=== PATIENT | female | born 1970 | race Caucasian/White ===

== ENCOUNTER → 2018-10-31 15:31 | Outpatient (CLI) | payer BC, SELFPAY ==
--- NOTE | 2018-10-31 15:37 | XR_ITS ---
XR thoracic spine 3V Ordering Physician: Nayla Bowman APRN Patient Age: 47 years: Female HISTORY: ITS.REASON: ACUTE RIGHT SIDED THORACIC BACK PAIN Acute right sided thoracic back pain. No injury. TECHNIQUE: AP lateral and swimmer's view lateral T-spine. COMPARISON : No previous. FINDINGS The thoracic vertebral bodies appear intact no compression fracture. Disc spaces are fairly well maintained. Minor anterior marginal osteophytes mid T-spine. With this study includes the lower C-spine where there is disc space narrowing C6/7 noted The pedicles are intact. No paraspinal mass. Minor dextrocurvature of the mid to upper T-spine noted. Nonspecific but could reflect mild splinting.. The posterior ribs adjacent to the spine intact. No paraspinal mass nor medial lung mass. It Visualized portions of lungs clear. IMPRESSION: T-spine intact with no fracture or acute findings. Minor degenerative change T-spine Minimal dextrocurvature mid to upper T-spine
== END ==
PROVIDERS: PCP Nurse Practitioner; Visit Provider Nurse Practitioner
DX: M54.6 Pain in thoracic spine (principal)
CPT/HCPCS: 72072

== ENCOUNTER → 2018-12-26 16:34 | Outpatient (CLI) | payer BC, SELFPAY ==
--- NOTE | 2018-12-26 | XR_ITS ---
PROCEDURE: XR RIBS LT MIN 3V W CXR1V CLINICAL INDICATION: Left mid to lower rib pain, pleurisy COMPARISON: XR CHEST 2V from 12/26/2018 FINDINGS: No acute fracture, lytic or blastic change. There is an old fracture of the right 2nd and 3rd rib. IMPRESSION: No acute findings. Dictated by: Honorio Ricci MD 12/26/2018 19:38 Signed by: <Electronically signed by Honorio Ricci MD in [facility]> 12/26/2018 19:38
--- NOTE | 2018-12-26 16:56 | XR_ITS ---
PROCEDURE: XR CHEST 2V CLINICAL HISTORY: PLEURITIC CHEST PAIN Rib pain, cough, smoker COMPARISON: No exams were available for comparison FINDINGS: The cardiomediastinal silhouette and pulmonary vascularity are within normal limits.The lungs are clear without infiltrates, suspicious nodules, or pleural effusions. No acute bony abnormalities. IMPRESSION: No acute findings. Dictated by: Honorio Ricci MD 12/26/2018 19:36 Signed by: <Electronically signed by Honorio Ricci MD in [facility]> 12/26/2018 19:36
== END ==
PROVIDERS: PCP Nurse Practitioner; Visit Provider Nurse Practitioner
DX: R07.81 Pleurodynia (principal)
CPT/HCPCS: 71046; 71101

== ENCOUNTER 2022-07-27 16:46 | Emergency (ER) | payer BC, SELFPAY ==
[2022-07-27 16:55] VITALS: BP 128/67; PULSE 62; RESP 13; TEMP 37; O2SAT 95; BMI 33.8
--- NOTE | 2022-07-27 17:04 | CT_ITS ---
PROCEDURE INFORMATION: Exam: CT Abdomen And Pelvis With Contrast Exam date and time: 07/27/2022 5:28 PM Age: 51 years old Clinical indication: Abdominal pain; Localized; Right; Additional info: R abdo pain, rectal bleediing, v/d TECHNIQUE: Imaging protocol: Computed tomography of the abdomen and pelvis with contrast. Radiation optimization: All CT scans at this facility use at least one of these dose optimization techniques: automated exposure control; mA and/or kV adjustment per patient size (includes targeted exams where dose is matched to clinical indication); or iterative reconstruction. Contrast material: ISOVUE; Contrast volume: 75 ml; Contrast route: IV; REPORTING DATA: Count of CT and Cardiac NM exams in prior 12 months: This patient has received 0 known CTs and 0 known cardiac nuclear medicine studies in the 12 months prior to the current study. COMPARISON: CR XR CHEST 2V 12/26/2018 4:59 PM FINDINGS: Lungs: No acute findings in the visualized lower lungs. No consolidation. Heart: The heart is not enlarged. Liver: The liver is normal. Gallbladder and bile ducts: Cholecystectomy clips. Biliary tree is within normal limits. No calcified stones. Pancreas: The pancreas is normal. Spleen: The spleen is normal. Adrenal glands: The adrenal glands are normal. Kidneys and ureters: The kidneys are normal. The ureters are normal. Stomach and bowel: The stomach is normal. Scattered small intestinal air-fluid levels, no dilated loops or mucosal thickening. A thickened, edematous appearance of the descending colon, to a lesser degree in the transverse colon and upper sigmoid colon . There are multiple diverticula, greatest in the left lower quadrant sigmoid. There is no paracolic fluid. No extraluminal gas bubbles. Appendix: No findings of appendicitis. Intraperitoneal space: See Stomach and bowel finding. Vasculature: There is no aortic aneurysm. Minimal calcified atherosclerotic plaques in the abdomen and pelvis. Lymph nodes: No significantly enlarged lymph nodes by short axis criteria. Urinary bladder: The bladder is normal. Reproductive: Post hysterectomy. No acute findings as visualized. Bones/joints: Minimal spinal degenerative changes. No acute fracture. Soft tissues: There are no soft tissue masses or fluid collections. There are no soft tissue masses or fluid collections. IMPRESSION: 1. Colonic wall thickening and edema involving transverse colon through upper sigmoid, with multiple diverticula. Due to the extent of disease colitis appears most likely, less likely differential would be acute diverticulitis. 2. No paracolic fluid or extraluminal gas bubbles. 3. No findings of appendicitis. 4. Additional nonemergency and chronic findings as above.
--- NOTE | 2022-07-27 17:05 | [facility].EDGENADL ---
Discharge Plan Disposition Patient Disposition: Home, Self-Care Condition: Good Prescriptions Prescriptions: New ciprofloxacin HCl [Cipro] 500 mg tablet 500 mg PO BID Qty: 20 0RF metronidazole 500 mg tablet 500 mg PO TID Qty: 30 0RF ondansetron 4 mg tablet,disintegrating 4 mg PO Q8H PRN (Reason: nausea and vomiting) Qty: 10 0RF No Action tizanidine 4 mg tablet PO Qty: 60 adalimumab 40 mg/0.4 mL pen injector kit SQ Qty: 6 folic acid 1 mg tablet PO Qty: 90 tramadol 50 mg tablet PO Qty: 60 cholecalciferol (vitamin D3) 5,000 unit capsule PO Qty: 90 cyanocobalamin (vitamin B-12) 1,000 mcg tablet PO Qty: 90 fluticasone propionate 50 mcg/actuation spray,suspension INTRANASAL Qty: 32 citalopram 40 mg tablet PO Qty: 90 methotrexate sodium 2.5 mg tablet PO Qty: 78 levocetirizine 5 mg tablet PO Qty: 90 conjugated estrogens 0.9 mg tablet 0.9 mg PO DAILY Qty: 90 2RF Referrals Follow up/Referrals: Atul Coto PA [Primary Care Provider] - See instructions Activity Restrictions/Add. Instructions Additional Instructions/Restrictions: Cipro and Flagyl (antibiotics) as prescribed. Zofran as needed for nausea. Rest and drink plenty of fluids. Follow-up with primary care provider next week. Additional instructions for ABDOMINAL PAIN: See your physician as soon as possible for further evaluation. Return immediately if worsening abdominal pain, vomiting, shortness of breath, fever, vomiting of blood, severe rectal bleeding, or abdominal distention. Clinical Impressions Clinical Impression: Colitis Instructions Patient Instructions: DI for Acute Abdominal Pain, DI for Colitis, DI for Vomiting -- Adult Discharge ED Provider: Jaziel Mcrae General Adult HPI General Chief complaint: Abdominal Pain Stated complaint: unable to eat/drink, vomiting, blood in stool Time Seen by Provider: 07/27/22 16:57 Mode of Arrival: Ambulatory Source of Information: Patient Limitations: No Limitations Description of Symptoms (Recalled from ER Triage Doc. by RN): Pt c/o N/V/BRBPR since last pm; reports no similiar pmhx History of Present Illness HPI narrative: Since 8 PM last night she has had abdominal pain on the right side of her abdomen into her right flank, vomiting, and diarrhea. Diarrhea resolved and since then she has only been passing blood, which is happened approximately 6 times. No vomiting of blood. Unable to hold anything down all day today. No fever. No recent travel, antibiotics, or exposures. Prior hysterectomy and cholecystectomy. She is not on any anticoagulants. Related Data Home Medications Medication Instructions Recorded Confirmed adalimumab 40 mg/0.4 mL SQ #6 ea 02/23/19 02/23/19 subcutaneous pen kit cholecalciferol (vitamin D3) 125 PO #90 caps 02/23/19 02/23/19 mcg (5,000 unit) capsule citalopram 40 mg tablet PO #90 tabs 02/23/19 02/23/19 cyanocobalamin (vitamin B-12) PO #90 tabs 02/23/19 02/23/19 1,000 mcg tablet fluticasone propionate 50 intranasal #32 grams 02/23/19 02/23/19 mcg/actuation nasal spray,suspension folic acid 1 mg tablet PO #90 tabs 02/23/19 02/23/19 levocetirizine 5 mg tablet PO #90 tabs 02/23/19 02/23/19 methotrexate sodium 2.5 mg tablet PO #78 tabs 02/23/19 02/23/19 tizanidine 4 mg tablet PO #60 tabs 02/23/19 02/23/19 tramadol 50 mg tablet PO #60 tabs 02/23/19 02/23/19 Previous Rx's Medication Instructions Recorded conjugated estrogens 0.9 mg tablet 0.9 mg PO DAILY #90 tabs 06/01/20 ciprofloxacin HCl 500 mg tablet 500 mg PO BID #20 tabs 07/27/22 (Cipro) metronidazole 500 mg tablet 500 mg PO TID #30 tabs 07/27/22 ondansetron 4 mg disintegrating 4 mg PO Q8H PRN nausea and 07/27/22 tablet vomiting #10 tabs Allergies Allergy/AdvReac Type Severity Reaction Status Date / Time morphine AdvReac Vomiting Verified 02/23/19 13:47 P
[2022-07-27 17:09] LABS: Chloride 107 mmol/L (98-107); Potassium 3.9 mmoL/L (3.5-5.1); Sodium 137 mmol/L (136-145)
[2022-07-27 17:11] LABS: Basophils # 0.1 K/mm3 (0-0.2); Basophils % 0.6 % (0.1-2.0); Eosinophils # 0.1 K/mm3 (0.0-0.4); Eosinophils % 0.9 % (0.1-12.0); Hematocrit 44.5 % (37.0-47.0); Hemoglobin 15.1 g/dL (12.2-16.2); Lymphocytes # 1.7 K/mm3 (0.7-4.5); Lymphocytes % 21.5 % (10-50); Mean Corpuscular HGB Conc 33.9 g/dL (31.8-35.4); Mean Corpuscular Hemoglobin 31.2 pg (27.0-31.2); Mean Corpuscular Volume 92.1 fl (81-99); Mean Platelet Volume 10.3 fl (7.4-10.4); Monocytes # 0.4 K/mm3 (0.1-1.0); Monocytes % 4.3 % (1.7-9.3); Neutrophils # 5.8 K/mm3 (1.8-7.8); Neutrophils % 72.6 % (37.0-80.0); Platelet Count 150 K/mm3 (142-424); Red Blood Count 4.83 M/mm3 (4.20-5.40); Red Cell Distribution Width 12.6 % (11.5-17.5)
[2022-07-27 17:12] LABS: Albumin Level 4.2 g/dl (3.5-5.0); Albumin/Globulin Ratio 1.6 (1.1-1.8); Alkaline Phosphatase 62 U/L (38-126); Anion Gap 6.9 mEq/L (5-15); Bilirubin,Total 0.6 mg/dl (0.2-1.3); Blood Urea Nitrogen 7 mg/dl (7-17); Carbon Dioxide 27 mmol/L (22.0-30.0); Creatinine Clearance Estimated 133 mL/min (50-200); Estimated Glomerular Filt Rate 89 ml/min (>60); GFR (African American) 108 ML/MIN (>60); Globulin 2.7 g/dL (1.3-3.2); Total Protein,Serum 6.9 g/dl (6.3-8.2)
[2022-07-27 17:13] LABS: Alanine Aminotransferase 15 U/L (12-78); Aspartate Amino Transferase 30 U/L (14-36); Calcium 8.6 mg/dl (8.4-10.2); Glucose 88 mg/dl (74-100)
[2022-07-27 17:30] VITALS: BP 100/61; PULSE 64; O2SAT 94
[2022-07-27 18:01] VITALS: BP 135/85; PULSE 65; O2SAT 95
--- NOTE | 2022-07-27 18:29 | PC.NURSE ---
rounded on pt no complaints at this time, family @ [facility]
[2022-07-27 18:51] VITALS: BP 154/91; PULSE 63; RESP 12; TEMP 36.7; O2SAT 98
== END 2022-07-27 18:53 | disposition home or self-care (01) ==
PROVIDERS: Emergency Provider Emergency Medicine; PCP Student in an Organized Health Care Education/Training Program
DX: K52.9 Noninfective gastroenteritis and colitis, unspecified (principal); K92.1 Melena; R10.11 Right upper quadrant pain; R10.31 Right lower quadrant pain
CPT/HCPCS: 74177; 80053; 85025; 96361; 96374; 96375; 99284; 99285; J2405; Q9967

== ENCOUNTER 2024-01-14 20:42 | Emergency (ER) | payer BC, SELFPAY ==
[2024-01-14 20:43] VITALS: BP 145/80; PULSE 82; RESP 20; TEMP 37; O2SAT 97; BMI 30.9
--- NOTE | 2024-01-14 20:49 | ED_ITS ---
<Statement entered by Kevin Suazo MD - 01/14/24 22:44> I was consulted by the PASCUAL, and we discussed the complexity of problems being addressed. I approved the treatment and management plan for this patient's care in the emergency department, thus performing a substantial portion of the medical decision making. Kevin Suazo MD Discharge Plan Disposition Patient Disposition: Home, Self-Care Condition: Good Prescriptions Prescriptions: New valacyclovir [Valtrex] 1 gram tablet 1,000 mg PO Q8H 7 Days Qty: 21 0RF gabapentin 300 mg capsule 300 mg PO BID 7 Days Qty: 14 0RF ondansetron 4 mg tablet,disintegrating 4 mg PO Q6H PRN (Reason: nausea and vomiting) Qty: 10 0RF No Action tizanidine 4 mg tablet PO Qty: 60 adalimumab 40 mg/0.4 mL pen injector kit SQ Qty: 6 folic acid 1 mg tablet PO Qty: 90 tramadol 50 mg tablet PO Qty: 60 cholecalciferol (vitamin D3) 5,000 unit capsule PO Qty: 90 cyanocobalamin (vitamin B-12) 1,000 mcg tablet PO Qty: 90 fluticasone propionate 50 mcg/actuation spray,suspension INTRANASAL Qty: 32 citalopram 40 mg tablet PO Qty: 90 methotrexate sodium 2.5 mg tablet PO Qty: 78 levocetirizine 5 mg tablet PO Qty: 90 conjugated estrogens 0.9 mg tablet 0.9 mg PO DAILY Qty: 90 2RF ciprofloxacin HCl [Cipro] 500 mg tablet 500 mg PO BID Qty: 20 0RF metronidazole 500 mg tablet 500 mg PO TID Qty: 30 0RF ondansetron 4 mg tablet,disintegrating 4 mg PO Q8H PRN (Reason: nausea and vomiting) Qty: 10 0RF Referrals Follow up/Referrals: Atul Coto PA [Primary Care Provider] - See instructions Activity Restrictions/Add. Instructions Additional Instructions/Restrictions: Please follow-up with your PCP within 48 hours for recheck. Return to the emergency department for any worsening signs or symptoms including fever and headache. Clinical Impressions Clinical Impression: Shingles Qualifiers: Herpes zoster complications: unspecified herpes zoster complication Qualified Code(s): B02.8 - Zoster with other complications Instructions Patient Instructions: DI for Shingles Print Language Print Language: Greek Discharge ED Provider: Kevin Suazo General Adult HPI General Chief complaint: Skin/Abscess/Foreign Body Stated complaint: poss insect bite Time Seen by Provider: 01/14/24 20:49 History of Present Illness HPI narrative: Patient presents for evaluation initially of a bug bite . Patient states that she feels like that she had a bug bite on the back of her neck that she noticed on . However it seems to have spread and has become very painful. There is no itching fever chills hemoptysis hematochezia melena nausea vomiting diarrhea headache change in level of consciousness. Related Data Home Medications ?Medication ?Instructions ?Recorded ?Confirmed adalimumab 40 mg/0.4 mL SQ #6 ea 02/23/19 02/23/19 subcutaneous pen kit cholecalciferol (vitamin D3) 125 PO #90 caps 02/23/19 02/23/19 mcg (5,000 unit) capsule citalopram 40 mg tablet PO #90 tabs 02/23/19 02/23/19 cyanocobalamin (vitamin B-12) PO #90 tabs 02/23/19 02/23/19 1,000 mcg tablet fluticasone propionate 50 intranasal #32 grams 02/23/19 02/23/19 mcg/actuation nasal spray,suspension folic acid 1 mg tablet PO #90 tabs 02/23/19 02/23/19 levocetirizine 5 mg tablet PO #90 tabs 02/23/19 02/23/19 methotrexate sodium 2.5 mg tablet PO #78 tabs 02/23/19 02/23/19 tizanidine 4 mg tablet PO #60 tabs 02/23/19 02/23/19 tramadol 50 mg tablet PO #60 tabs 02/23/19 02/23/19 Previous Rx's ?Medication ?Instructions ?Recorded conjugated estrogens 0.9 mg tablet 0.9 mg PO DAILY #90 tabs 06/01/20 ciprofloxacin HCl 500 mg tablet 500 mg PO BID #20 tabs 07/27/22 (Cipro) metronidazole 500 mg tablet 500 mg PO TID #30 tabs 07/27/22 ondansetron 4 mg disintegrating 4 mg PO Q8H PRN nausea and 07/27/22 tablet vomiting #10 tabs gabapentin 300 mg capsule 300 mg PO BID 7 days #14 caps 01/14/24 gabapentin 300 mg capsule 300 mg PO TID #30 caps 01/14/24 ondansetron 4 mg disintegrating 4 mg PO Q6H PRN nausea and 01/14/24 tablet vomiting #10 tabs valacyclovir 1 gram tablet 1,000 mg PO Q8H 7 days #21 tabs 01/14/24 (Valtrex) Allergies Allergy/AdvReac Type Severity Reaction Status Date / Time morphine AdvReac Vomiting Verified 02/23/19 13:47 PFSH PFS Disclaimer: The information contained in this section may have been updated after the patient was seen, as this information can be updated by other users. Social History Smoking Status: Never smoker alcohol intake: never current occupational status: employed Travel in the last 8 weeks: None ROS Obtained: Yes Systems reviewed as appropriate & no additional complaints except as documented Physical Exam General General appearance: alert and in no apparent distress Neck Neck exam: Present lymphadenopathy Respiratory Respiratory exam: Present accessory muscle use Cardiovascular Cardiovascular exam: Present regular rate Neurological Exam Neurological exam: Present alert and oriented X3 Medical Decision Making Rinku Inquiry Pt receiving controlled substance: No Vital Signs: 01/14/24 20:43 01/14/24 21:23 Temperature 98.6 F 98.1 F Temperature Source Oral Oral Pulse Rate 85 Pulse Rate [Right Radial] 82 Respiratory Rate 20 17 Blood Pressure 129/88 Blood Pressure [Right Arm] 145/80 H Blood Pressure Mean [Right Arm] 101 Blood Pressure Source Automatic Cuff 02 Sat by Pulse Oximetry 97 Oxygen Delivery Method Room Air Room Air Orders (Tests/Meds): ED MEDICATIONS Discontinued Medications Generic Name Dose Route Start Last Admin Trade Name Freq PRN Reason Stop Dose Admin Acyclovir 800 mg 01/14/24 21:01/14/24 21:22 Acyclovir 400mg Tab PO 01/14/24 21:10 800 mg ONCE ONE Administration Gabapentin 300 mg 01/14/24 21:09 01/14/24 21:22 Gabapentin 300mg Capsule PO 01/14/24 21:10 300 mg ONCE ONE Administration Medical Decision Narrative: In summary patient is a 53-year-old female who presents to the emergency department for evaluation of skin eruption. Patient is hemodynamically stable upon arrival, afebrile. Physical exam is remarkable for a vesicular erythematous base rash over the C4 dermatome on the left.. Differential diagnosis includes shingles versus contact dermatitis etc. Initial workup was considered however she has no red flags that this is anything other than herpes zoster as she has the classic burning pain arthralgias with vesicular erythematous distribution over the C4 dermatome only and it does not cross the midline.. Initial interventions include gabapentin acyclovir. Given this patient is appropriate for discharge with strict return precautions especially fever greater than 100, prescription for Valtrex 1 g every 8 hours and gabapentin 300 mg every 8 hours as needed for neuropathic pain and a 48-hour follow-up with her PCP. Critical Care Critical Care Time Critical Care Time: No
[2024-01-14] MEDS: ACYCLOVIR 400MG TAB 800 MG PO (21:22)
[2024-01-14] MEDS: GABAPENTIN 300MG CAPSULE 300 MG PO (21:22)
[2024-01-14 21:23] VITALS: BP 129/88; PULSE 85; RESP 17; TEMP 36.7; O2SAT 98
[2024-01-14 21:25] VITALS: BP 129/88; PULSE 66; O2SAT 98
--- NOTE | 2024-01-15 10:58 | P.EN_ITS ---
I was contacted by pharmacy, this patient's gabapentin is unable to be filled due to transmission error. I discussed the case with the prescribing physician and performed brief chart review. Dr. Suazo is currently having problems with electronic transmission that he is troubleshooting, he wrote a paper prescription however this is unable to be honored given that it is controlled. Patient has shingles clinically and is being treated with valacyclovir and gabapentin for their for pain. I agree that this is a good plan and given that the prescriber is unable to send it electronically currently as a medical reimbursement specialist will fill this patient's prescription for a 10-day course which has been sent by me to their pharmacy on record.
== END 2024-01-14 21:36 | disposition home or self-care (01) ==
PROVIDERS: Emergency Provider Emergency Medicine; PCP Student in an Organized Health Care Education/Training Program
DX: B02.8 Zoster with other complications (principal)
CPT/HCPCS: 99283

== ENCOUNTER 2025-01-27 20:48 | Emergency (ER) | payer OTHER, SELFPAY ==
--- OUTSIDE RECORDS SUMMARY | 2023-10-10 10:00 | XMS_ITS | Continuity of Care Document ---
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 Name Role Phone Senait MALDONADO, Stevo Unavailable Unavailable Allergies, Adverse Reactions, Alerts Substance Reaction Status Criticality morphine Swelling Active No Information morphine Active No Information Medications Medication Instructions Dosage Effective Dates (start - stop) Status Comments Percocet 5 mg-325 mg tablet take 1 - 2 Tablet by ORAL route every 4 - 6 hours as needed 1-2 Tablet - Active MUST LAST 5 DAYS, ORTHOPAEDIC SURGERY ON 09/25/2023 ondansetron HCl 4 mg tablet take 1 - 2 Tablet by oral route every 6 hours as needed for nausea 4 MG - Active Percocet 5 mg-325 mg tablet take 1 - 2 Tablet by ORAL route every 4 - 6 hours as needed 1-2 Tablet - Active MUST LAST 5 DAYS, ORTHOPAEDIC SURGERY ON 07/31/2023 ondansetron HCl 4 mg tablet take 1 - 2 Tablet by oral route every 6 hours as needed for nausea 4 MG - Active Celebrex 100 mg capsule take 1 capsule by oral route every day 100 MG - Active tizanidine 4 mg tablet take 1 tablet by oral route every night at bedtime - Active Medrol (Sharad) 4 mg tablets in a dose pack take by Oral route Not Available - Active Percocet 5 mg-325 mg tablet take 1 - 2 Tablet by ORAL route every 4 - 6 hours as needed 1-2 Tablet - Active MUST LAST 7 DAYS, ORTHOPAEDIC SURGERY ON 05/08/2019 promethazine 25 mg tablet take 1 tablet by oral route every 4 - 6 hours as needed 25 MG - Active Procedures Procedure Date Postop followup visit Carpal tunnel surgery Postop followup visit Carpal tunnel surgery Office/outpatient visit,est, mod 2023 Office/outpatient visit,est, mod 2023 Office/outpatient visit,est, high MRI Lumbar Spine wo Contrast Office/outpatient visit,new, mod 2022 Inject, therapeutic, carpal tunnel Dexamethasone sodium phos Office/outpatient visit,est, low 2019 Dexamethasone sodium phos Inject tndn sheath/lgmnt/gangl cyst Office/outpatient visit,est, mod 2019 Dexamethasone sodium phos Inject, therapeutic, carpal tunnel MRI Upr Ext Joint wo Contrast Office/outpatient visit,est, mod 2019 Dexamethasone sodium phos Drain/inject intermed joint/bursa Office/outpatient visit,est, mod 2019 X-ray exam of finger(s),2+ views 2019 Office/outpatient visit,est, mod 2019 X-ray exam of finger(s),2+ views 2019 Postop followup visit X-ray exam of finger(s),2+ views 2019 Postop followup visit X-ray exam of finger(s),2+ views 2019 Repair/revise wrist joint(s) Transplant hand tendon, each PA- Repair/Revise Wrist Joint 9 PA Transplant hand tendon, each 019 Postop followup visit Carpal tunnel surgery Postop followup visit REPAIR ELBOW RODRIGO/ATTCH OPEN EO withjoint, Prefabricated Office/outpatient visit,est, mod 2018 MRI Upr Ext Joint wo Contrast 9 Office/outpatient visit,est, mod 2018 Office/outpatient visit,est, mod 2018 X-ray exam of elbow, complete 9 X-ray exam of finger(s),2+ views 2018 Drain/inject small jointor bursa 2018 Injection, tendon origin/insertion Dexamethasone sodium phos Office/outpatient visit,est, mod 2018 Office/outpatient visit,est, mod 2018 Inject, therapeutic, carpal tunnel Dexamethasone sodium phos Office/outpatient visit,est, mod 2018 Wrist cock-up non-molded Postop followup visit Postop followup visit Carpal tunnel surgery Office/outpatient visit,est, mod 2017 Office/outpatient visit,est, mod 2017 Wrist cock-up non-molded Office/outpatient visit,est, mod 2017 Inject, therapeutic, carpal tunnel Dexamethasone sodium phos Office/outpatient visit,est, mod 2017 NRV CNDJ TEST 9-10 STUDIES MUSC TEST DONE W/N TEST COMP Office/outpatient visit,est, mod 2017 Office/outpatient visit,est, mod 2017 Office/outpatient visit,est, mod 2016 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 3+ msclgrp Methylprednisolone 80 MG inj MRI Thoracic Spine wo Contrast 17 Office/outpatient visit,est, mod 2016 Office/outpatient visit,est, mod 2016 MRI Cervical Spine wo Contrast 17 Office consultation, moderate 7 X-ray exam of neck spine2-3 views Advance Directives Directive Yes / No Effective Date File Name No Information Encounters Encounter Description Practice Location Reason(s) For Visit Diagnoses Date Provider Providers Copied on Encounter [facility], [facility], tel:[phone] [facility] Carpal tunnel syndrome, bilateral upper limbs 0-202 4 Senait Stevo. [address] [place] [address], [address] [place] [address], . tel:[phone] Referring Provider: Stevo Sapp, [address] [address], [place], [address] . tel:[phone], [facility], tel:[phone] [facility], [place] No Information 5- 4 Senait Whiteside. [address] [place] [address], [address] [place] [address], . tel:[phone] Referring Provider: Stevo Sapp, [address] [place] [address], [place], [address] . tel:[phone] [facility] [address], [facility], tel:[phone] 26[address] [facility] No Information 3- 4 eSnait Stevo. [address] [place] [address], [id number], . tel:[phone] Referring Provider: Stevo Sapp, [address], [address] . tel:[phone] [facility] [address], [facility], tel:[phone] [facility] Carpal tunnel syndrome, bilateral upper limbs Apr-0 4-202 4 Senait Whiteside. [address], [id number], . tel:[phone] Referring Provider: Stevo Sapp, [address] [facility], [place], [address] . tel:[phone] [facility] [address] [place] [address], [address], tel:[phone] [facility] [place] No Information 0 4 Senait Whiteside. [address] [address], [place], [place], [id number], [place]. tel:[phone] Referring Provider: Stevo Sapp, [address] [facility], [place], [address] . tel:[phone] [facility], [address] [place] [address], [facility], tel:[phone] 46[address] [facility] No Information 4 Senait Whiteside. [address] [address], [place], [id number], [place]. tel:[phone] Referring Provider: Stevo Sapp, [address] [address], [place], [address] . tel:[phone] Office/outpa tient visit,est, mod [facility], [address] [place] [address], [address], [place] tel:[phone] [facility] Carpal tunnel syndrome, bilateral upper limbs 4 Senait Whiteside. [address], [id number], [place]. tel:[phone] Referring Provider: Stevo Sapp, [address] [address], [place], [address] . tel:[phone] Office/outpa tient visit,est, [facility], [address] [place] [address], [address], tel:[phone] [facility] back pain (chief complaint) Other low back pain 4 Adelaida Mayorga. [address] [place] [address] [place], [id number], [place]. tel:[phone] Referring Provider: Andres Castellano, [address], [place], [address] . tel:[phone] Office/outpa tient visit,est, high [facility], [address] [place], [address], [place] tel:[phone] [facility] back pain (chief complaint) Low back painRadiculopa thy, lumbar region 4 Tabbosha Monir. [address] [facility], [place], [place], [id number], [place]. tel:[phone] Referring Provider: Nixon Yo, [address], [place], [address] . tel:[phone] [facility], [facility], [address], [place] tel:[phone] [address] [place] [address] Other intervertebral disc degeneration, lumbar region 4 Sanaz Alicea. [address], [place], [place], [id number], [place]. tel:[phone] Referring Provider: Nixon Yo, [address], [place], [address] . tel:[phone] [facility], [facility], [address], [place] tel:[phone] [address] [place] [address] No Information 4 Sanaz Alicea. [address], [place], [place], [id number], [place]. tel:[phone] Referring Provider: Nixon Yo, [address], [place], [address] . tel:[phone] [facility], [facility], [address], [place] tel:[phone] [address] [place] [address] Low back pain, unspecified 4 Sanaz Alicea. [address], [place], [place], [id number], [place]. tel:[phone] Referring Provider: Stevo Sapp, [address] [facility], [place], [address] . tel:[phone] Office/outpa tient visit,new, mod [facility], [address] [place], [address], [place] tel:[phone] [facility] Carpal tunnel syndrome, bilateral upper limbs 3 Senait Stevo. [address] [facility], [address], [place], [place], [id number], [place]. tel:[phone] Referring Provider: Nixon Nails, [address] [facility] [address], [place], [place], [facility]. tel:[phone] Office/outpa tient visit,est, [facility], [facility] [place], [facility], [place] tel:[phone] [facility] Radial styloid tenosynovitis [de Quervain] 0 Senait Stevo. [address] [facility], [facility] [address], [place], [id number], [place]. tel:[phone] Office/outpa tient visit,est, [facility], [address] [place] [address], [address], [place] tel:[phone] [facility] Pain in left wristSprain of metacarpophala ngeal joint of left thumb, init 0 Senait Stevo. [address] [facility], [address], [place], [id number], [place]. tel:[phone] [facility] [address], [address], [place] tel:[phone] [facility] No Information 0 Senait Stevo. [address] [facility], [facility] 100, [place], [place], [id number], [place]. tel:[phone] Referring Provider: Stevo Sapp, [address] [facility] [address], [place], [address] . tel:[phone] Office/outpa tient visit,est, mod [facility], [address] [place], [address], [place] tel:[phone] [facility] Sprain of metacarpophala ngeal joint of left thumb, init 9 0 Senait Stevo. [address] [facility], [address], [place], [place], [id number], [place]. tel:[phone] Referring Provider: Nixon Yo, [address], [place], [address] . tel:[phone] Office/outpa tient visit,est, mod [facility], [facility], [address], [place] tel:[phone] [facility] hand (chief complaint) Unil primary osteoarth of first carpometacarp joint, l hand 0 Senait Stevo. [address] [facility], [facility] 100, [place], [place], [id number], [place]. tel:[phone] Referring Provider: Nixon Yo, [address], [place], [address] . tel:[phone] Office/outpa tient visit,est, mod [facility], [address] [place] [address], [facility], [place] tel:[phone] [facility] No Information 0 Senait Stevo. [address] [facility], [address], [place], [place], [id number], [place]. tel:[phone] Referring Provider: Nixon Yo, [address], [place], [address] . tel:[phone] [facility], [facility], [address], [place] tel:[phone] [facility] No Information 0 Senait Stevo. [address] [facility], [facility], [place], [place], [id number], [place]. tel:[phone] Referring Provider: Nixon Yo, [place], [address] . tel:[phone] [facility], [address] [place], [place], [facility], [place] tel:[phone] [facility] No Information 0 Senait Stevo. [address] [facility], [facility] 100, [place], [place], [id number], [place]. tel:[phone] [facility], [address] [place], [place], [facility], [place] tel:[phone] [facility] No Information 0 Senait Stevo. [address] [address], [place], [place], [id number], [place]. tel:[phone] [facility], [facility] [place], [facility], [place] tel:[phone] [facility] No Information 9 Senait Stevo. [address], [id number], [place]. tel:[phone] [facility], [facility] [place], [facility], [place] tel:[phone] [facility] No Information 9 Blayne Mcginnis. [address] [place], [place], [id number], [place]. 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 [address] [facility], [address], [id number], [place]. tel:[phone] Referring Provider: Nixon Yo, [address], [place], [address] . tel:[phone] [facility], [address] [place], [place], [facility], [place] tel:[phone] [facility] No Information 9 Senait Stevo. [address] [facility], [address], [place], [place], [id number], [place]. tel:[phone] Referring Provider: Nixon Yo, [address] [place], [address] . tel:[phone] [facility], [address] [place], [place], [facility], [place] tel:[phone] [facility] No Information 9 Senait Stevo. [address] [facility], Suite [facility], [place], [place], [id number], [place]. tel:[phone] [facility], [address] [place], [place], [facility], [place] tel:[phone] [place] [address] Carpal tunnel syndrome, right upper limb 9 Senait Stevo. 64[address] [facility], [address] [address], [place], [place], [id number], [place]. tel:[phone] [facility], [address] [place], [place], [facility], [place] tel:[phone] [place] [address] No Information 9 Senait Stevo. [address] [facility], [address], [place], [id number], [place]. tel:[phone] [facility], [address] [place], [place], [facility], [place] tel:[phone] [facility] No Information 9 Senait Stevo. [address] [facility], [address], [place], [place], [id number], [place]. tel:[phone] [facility], [address] [place], [place], [facility], tel:[phone] [facility] No Information 8201 9 Senait Whiteside. [address], [address] [place] [address], . tel:[phone] Referring Provider: Nixon Yo, [address], [place], [address] . tel:[phone] Office/outpa tient visit,est, mod [facility], [address] [place] [address], [facility], tel:[phone] [facility] No Information 4201 9 Senait Stevo. [address], [address] [place] [address], . tel:[phone] Referring Provider: Stevo Sapp, [address], [address] . tel:[phone] [facility], [address] [place] [address], [facility], tel:[phone] [facility] No Information 7201 9 Senait Stevo. [address], [address] [place] [address], . tel:[phone] Referring Provider: Stevo Sapp, [address], [address] . tel:[phone] Office/outpa tient visit,est, mod [facility], [address] [place] [address], [facility], tel:[phone] [facility] No Information 0201 9 Senait Stevo. [address], [address] [place] [address], . tel:[phone] Referring Provider: Nixon Yo, [address] [place], [address] . tel:[phone] Office[facility]outpa tient visit,est, mod [facility] [address] [place], [address], [place] tel:[phone] [facility] elbow (chief complaint) Lateral epicondylitis of left elbow Sep-2 9 Senait Stevo. [address] [facility], [address], [id number], [place]. tel:[phone] Referring Provider: [place], [address] . tel:[phone] Office/outpa tient visit,est, mod [facility], [address] [place], [address], [place] tel:[phone] [facility] No Information 9 Senait Stevo. [address] [address], [place], [place], [id number], [place]. tel:[phone] Referring Provider: [address], [place], [address] . tel:[phone] Office/outpa tient visit,est, [facility], [address] [place] [address], [address], [place] tel:[phone] [facility] No Information 0 9 Senait Stevo. [address] [facility], [address] [address], [place], [place], [id number], [place]. tel:[phone] Referring Provider: [address], [place], [address] . tel:[phone] [facility], [address] [place] [address], [address], [place] tel:[phone] [facility] No Information 3 9 Senait Stevo. [address] [facility], [address], [id number], [place]. tel:[phone] Referring Provider: [place], [address] . tel:[phone] Office/outpa tient visit,est, mod [facility], [address] [place] [address], [facility], tel:[phone] [facility] right carpal tunnel syndrome (chief complaint) No Information 9 Senait Stevo. 64[address] [facility], [address], [id number], . tel:[phone] Referring Provider: Nixon Yo, [address], [place], [address] . tel:[phone] [facility], [address] [place] [address], [facility], tel:[phone] [address] [place] [address] No Information 9 Senait Stevo. 6480 [facility], [address], [id number], . tel:[phone] [facility], [address] [place] [address], [facility], tel:[phone] [place] [address] No Information 8 Senait Stevo. 6480 [facility], [address], [id number], . tel:[phone] Referring Provider: Nixon Yo, [address] [place], [address] . tel:[phone] [facility], [address] [place] [address], [facility], tel:[phone] [phone] [place] [address] No Information 8 Senait Stevo. 6480 [facility], [address], [id number], . tel:[phone] [facility] [address], [facility], tel:[phone] [place] [address] No Information 8 Senait Stevo. 64[address] [facility], [address], [id number], [place]. tel:[phone] Office/outpa tient visit,est, mod [facility], [facility], [address], [place] tel:[phone] [facility] No Information 8 Sanaz Alicea. [address] [place], [place], [id number], . tel:[phone] Office/outpa tient visit,est, mod [facility], [facility], [address], [place] tel:[phone] [facility] No Information 8 Senait Whiteside. [address], [id number], [place]. tel:[phone] [facility], [address] [place] [address], [facility], [place] tel:[phone] [facility] No Information 8 Senait Whiteside. [address] [address], [place], [place], [id number], [place]. tel:[phone] Referring Provider: Stevo Sapp, [address] [place] [address], [place], [address] . tel:[phone] Office/outpa tient visit,est, mod [facility], [address] [place] [address], [facility], [place] tel:[phone] [facility] wrist (chief complaint) Carpal tunnel syndrome, left upper limb 8 Senait Whiteside. [address] [address], [place], [place], [id number], [place]. tel:[phone] Referring Provider: Nixon Yo, [address], [place], [address] . tel:[phone] Office/outpa tient visit,est, mod [facility], [facility] [place], [address], [place] tel:[phone] [place] [address] No Information Aug-0 9- 8 Sanaz Alicea. [address], [place], [place], [id number], [place]. tel:[phone] [facility], [address] [place] [address], [facility], [place] tel:[phone] [facility] (chief complaint) No Information Aug-0 4-201 8 Adelaida Mayorga. [address] [facility], [address], [place], [place], [id number], [place]. tel:[phone] Referring Provider: Nixon Yo, [address], [place], [address] . tel:[phone] Office/outpa tient visit,est, mod [facility], [address] [place] [address], [facility], [place] tel:[phone] [facility] No Information 8 Sanaz Alicea. [address], [place], [place], [id number], [place]. tel:[phone] Office/outpa tient visit,est, mod [facility], [address] [place] [address], [facility], [place] tel:[phone] [place] [address] No Information 8 Sanaz Alicea. [address], [place], [place], [id number], [place]. tel:[phone] Office/outpa tient visit,est, mod [facility], [address] [place] [address], [facility], [place] tel:[phone] [place] [address] No Information Apr-2 7 Sanaz Alicea. [address], [place], [place], [id number], [place]. tel:[phone] [facility], [address] [place] [address], [facility], [place] tel:[phone] [facility] No Information Apr-2 7 Sanaz Alicea. [address], [place], [place], [id number], . tel:[phone] Referring Provider: Nixon Yo, [address], [place], [address] . tel:[phone] Office/outpa tient visit,est, mod [facility], [address] [place], [address], [place] tel:[phone] [facility] No Information 7 Sanaz Alicea. [address], [place], [place], [id number], [place]. tel:[phone] Office/outpa tient visit,est, mod [facility], [address] [place], [address], [place] tel:[phone] [facility] No Information 7 Sanaz Alicea. [address], [place], [place], [id number], [place]. tel:[phone] Referring Provider: Zachery Reddy, [address] [place] [address], [address] . tel:[phone] [facility], [address] [place], [address], [place] tel:[phone] [facility] No Information 7 Jerica Bingham. [address] [place], [place], [id number], [place]. tel:[phone] Referring Provider: Zachery Reddy, [facility], [address] . tel:[phone] Office consultation , moderate [facility], [address] [place], [address], [place] tel:[phone] [facility] No Information 7 Jerica Bingham. [address] [place], [place], [id number], [place]. tel:[phone] Referring Provider: Tono Suazo, [address] [facility] [address], [address] . tel:[phone] Family History Family Member Type Diagnosis Age At Onset Father Problem (finding) Cancer Mother Problem (finding) Family history of Hyper lipidemia Sister Problem (finding) Depression Brother Problem (finding) Hypertension Brother Problem (finding) Family history of Hyper lipidemia Mother Problem (finding) Depression Sister Problem (finding) Hypertension Mother Problem (finding) Hypertension Brother Problem (finding) Diabetes mellitus Mother Problem (finding) Family history of Osteo porosis Sister Problem (finding) Family history of Hyper lipidemia Sister Problem (finding) Family history of Osteo arthritis Payers Payer name Insurance type Covered green party ID [place] Medicaid [facility] [id number] Social History Type Description Quantity Date Captured Comments Sex Female Smoking Status No Information Chief Complaint And Reason For Visit No Information Reason For Referral Reason For Referral No Information Plan Of Treatment Date Type Action Status Referral Ordered: Andres Castellano MD (related to Low back pain) ordered Referral Referred To: Andres Castellano MD [facility] [place], [address] [phone] Ordered: Referrals: Andres Castellano MD. Evaluate and treat ordered Future Order: Radiology Order MR I Elbow WO Contrast ([id number]), Collected on: , Sent on: Sent Future Order: Radiology Order MR I Thoracic Spine WO Contrast ([id number]), Collected on: , Sent on: Sent Future Order: Radiology Order MR I Cervical Spine WO Contrast ([id number]), Collected on: , Sent on: Sent History Of Present Illness Encounter Date Complaint History Of Prese nt Illness back pain back pain back pain back pain back pain carpal tunnel syndrome hand The symptoms are reported as being moderate. The symptoms occur daily. elbow Location: left e lbow. The pain is aching and sharp. Associated symptoms include joint instability, joint tenderness, swelling and weakness. Hand Dominance: right. right carpal tunnel syndrome Sev erity of symptom is mild. Status of symptoms has worsened. She is right-handed. The problem occurs constantly. Affected side: right. 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 There is radiation to wrist. Symptoms are aggravated by driving, forceful work, holding a phone, repetitive work / hand intensive activity and sustained hand positions. The risk factors include female. Relieving factors include OTC medication: and wrist splinting. Associated symptoms include decreased mobility and numbness. wrist Location: left w rist. The pain is aching. The pain is aggravated by bending and movement. The pain is relieved by brace/splint. Associated symptoms include nocturnal awakening, numbness, swelling and tingling in the arms. EMG Functional Status Date Functional Assessmen t No Information Instructions Date Instruction Additional Infor mation No Information Assessments Type Assessment Date No Information Patient Care Teams Name Effective Dates (start - stop) Status Members No Information
--- OUTSIDE RECORDS SUMMARY | 2025-01-13 14:17 | XMS_ITS | Encounter Summary ---
Author Organization [place] [address] Care Team Providers Care Dry Cleaner Name Role Phone Nayla Bowman APRN Primary Care Provider [phone] Scooby Hicks MD Unavailable Reason for Referral * Mammography (Routine) - Pending Review Specialty Diagnoses / Procedures Referred By Geri ordaz Referred To Contact Radiology Diagnoses Encounter for screening mammogram for malignant neoplasm of breast Procedures MM MAMMO DIGITAL ALVARADO SCREEN Atul Cummings PA [address] [place] [address] [place] [address] Phone: tel: fax: Referral ID Status Reason Start Date Expiration Date V isits Requested Visits Authorized [id number] Pending Review 12/31/2024 12/31/2026 1 1 Reason for Visit * Mammography (Routine) - Pending Review Specialty Diagnoses / Procedures Referred By Geri ordaz Referred To Contact Radiology Diagnoses Encounter for screening mammogram for malignant neoplasm of breast Procedures MM MAMMO DIGITAL ALVARADO SCREEN Atul Cummings PA [address] [place] [address] [place] [address] Phone: tel: fax: Referral ID Status Reason Start Date Expiration Date V isits Requested Visits Authorized [id number] Pending Review 12/31/2024 12/31/2026 1 1 Encounter Details Date Type Department Care Team (Latest Contact Info) Description 01/13/2025 2:17 PM EDT - 01/13/2025 11:59 PM EDT Hospital Encounter Mobile Mammography Other Location View online schedule for mobile van location [phone] Atul Coto PA [address] [place] [address] [place] [id number] Encounter for screening mammogram for malignant neoplasm of breast Discharge Disposition: Home or Self Care Social History Tobacco Use Types Packs/Day Years Used Date Smoking Tobacco: Every Day Cigarettes 1 38.7 Started: 05/26/1986 Smokeless Tobacco: Never Alcohol Use Standard Drinks/Week Comments No 0 (1 standard drink = 0.6 oz pur e alcohol) Comments No Sex and Gender Information Value Date Recorded Sex Assigned at Not on file Legal Sex Female 9:19 PM EDT Gender Identity Not on file Sexual Orientation Not on file documented as of this encounter Last Filed Vital Signs Vital Sign Reading Time Taken Comments Blood Pressure - - Pulse - - Temperature - - Respiratory Rate - - Oxygen Saturation - - Inhaled Oxygen Concentration - - Weight 81.6 kg (180 lb) 01/13/2025 2:18 PM EDT Height 160 cm (5' 3 ) 01/13/2025 2:18 PM EDT Body Mass Index 31.89 01/13/2025 2:18 PM EDT documented in this encounter Medications at Time of Discharge acetaminophen 325 mg Oral Tab Take by mouth every 6 hours as needed. adalimumab (HUMIRA) 40 mg/0.4 mL SubQ Pen Injector Kit 02/26/2018 atorvastatin (LIPITOR) 10 mg Oral Tablet TAKE ONE (1) TABLET EVERY DAY BY ORAL ROUTE. 07/03/2021 Cholecalciferol, Vitamin D3, 5,000 unit Oral Capsule 08/19/2018 citalopram (CELEXA) 40 mg Oral Tablet 11/12/2018 cyanocobalamin 1,000 mcg Oral Tablet 08/19/2018 fluticasone propionate (FLONASE) 50 mcg/actuation Nasl [place], Suspension 03/11/2018 folic acid (FOLVITE) 1 mg Oral Tablet 12/02/2017 hyoscyamine (LEVSIN/SL) 0.125 mg SL Tablet, Sublingual 1 08/06/2018 levocetirizine (XYZAL) 5 mg Oral Tablet 11/25/2018 loratadine (CLARITIN) 10 mg Oral Tablet TAKE ONE (1) TABLET EVERY DAY BY ORAL ROUTE. 04/13/2021 methocarbamoL (ROBAXIN) 750 mg Oral Tablet TAKE ONE (1) TABLET THREE (3) TIMES A DAY BY ORAL ROUTE NEEDED. Methotrexate Sodium 2.5 mg Oral Tablets, Dose Pack 12/02/2017 naproxen (NAPROSYN) 500 mg Oral Tablet 05/25/2022 omeprazole (PRILOSEC) 40 mg Oral Capsule, Delayed Release(E.C.) TAKE ONE (1) CAPSULE BY MOUTH EVERY DAY oxybutynin (DITROPAN XL) 15 mg Oral Tablet Extended Rel 24 hr TAKE ONE (1) TABLET EVERY DAY BY ORAL ROUTE. 05/25/2022 PREMARIN 0.625 mg Oral Tablet TAKE ONE (1) TABLET EVERY DAY BY ORAL ROUTE. 04/10/2022 tiZANidine (ZANAFLEX) 4 mg Oral Tablet 09/18/2017 traMADol (ULTRAM) 50 mg Oral Tablet 02/17/2018 VITAMIN B-12 1,000 mcg Oral Tablet 08/19/2018 documented as of this encounter Discharge Disposition Disposition Code Departure Means Destination Home or Self Care documented in this encounter Plan of Treatment Not on file documented as of this encounter Procedures Procedure Name Priority Date/Time Associated Diagnosis Comments MM MAMMO DIGITAL ALVARADO SCREEN BILAT Routine 01/13/2025 2:18 PM EDT Encounter for screening mammogram for malignant neoplasm of breast documented in this encounter Results * MM MAMMO DIGITAL ALVARADO SCREEN BILAT (01/13/2025 2:18 PM EDT) Anatomical Region Laterality Modality Breast Bilateral Mammography 01/13/2025 2:18 PM EDT Impressions 01/14/2025 8:59 AM EDT Negative ([id number]) RECOMMENDATION: Routine Screening Mammogram in 1 Year Bilateral . . COMMENTS: DISCLAIMER *The patient was notified by MyChart or mail of the results for this examination. *The patient's information was entered into a reminder system with a target due date for the next breast imaging, in accordance with the [employer] and the Society of Breast Imaging recommendations. *Breast Imaging has a false negative rate of 15%. *Any patient with a palpable abnormality, unexplained by breast imaging, should be managed on a clinical basis by the attending physician. Narrative 01/14/2025 8:59 AM EDT EXAM: MM MAMMO DIGITAL ALVARADO SCREEN BILAT EXAM DATE: 01/13/2025 2:18 PM INDICATION: Z12.31-Encounter for screening mammogram for malignant neoplasm of syzzio-[id number] COMPARISON STUDIES: Multiple prior mammograms with most recent dated 10/07/2020 MM MAMMO DIGITAL SCREENING W CAD BILAT at [facility] TISSUE DENSITY: There are scattered areas of fibroglandular density. FINDINGS: No mammographic evidence of malignancy. Procedure Note Keyur Brizuela MD - 01/14/2025 EXAM: MM MAMMO DIGITAL ALVARADO SCREEN BILAT EXAM DATE: 01/13/2025 2:18 PM INDICATION: Z12.31-Encounter for screening mammogram for malignantneoplasm of lihdis-[id number] COMPARISON STUDIES: Multiple prior mammograms with most recent dated 10/07/2020 MM MAMMO DIGITAL SCREENING W CAD BILAT at [facility] TISSUE DENSITY: There are scattered areas of fibroglandular density. FINDINGS: No mammographic evidence of malignancy. IMPRESSION: Negative ([id number]) RECOMMENDATION: Routine Screening Mammogram in 1 Year Bilateral . . COMMENTS: DISCLAIMER *The patient was notified by MyChart or mail of the results for this examination. *The patient's information was entered into a reminder system with atarget due date for the next breast imaging, in accordance with the [employer] and the Society of Breast Imaging recommendations. *Breast Imaging has a false negative rate of 15%. *Any patient with a palpable abnormality, unexplained by breast imaging,should be managed on a clinical basis by the attending physician. Atul [facility] MAMMOGRAPHY ORDERABLES Final Result documented in this encounter Visit Diagnoses Diagnosis Encounter for screening mammogram for malignant neoplasm of breast Other screening mammogram documented in this encounter Care Teams Dry Cleaner Relationship Specialty Start Date End Date Nayla Bowman APRN [address] [place] [address] [address] [place] [address] PCP - General Nurse Practitioner 06/26/18 Scooby Hicks MD [address] [place] [address] [address] [place] [address] 06/26/18 documented as of this encounter
[2025-01-27 20:56] VITALS: RESP 16; TEMP 37; O2SAT 96; BMI 31.8
--- OUTSIDE RECORDS SUMMARY | 2025-01-27 21:28 | XMS_ITS | Clinical Summary ---
Author Organization [facility] Address [address] [place] [address] Phone [email or web address] Care Team Providers Care Dewer Name Role Phone Nayla Bowman Primary Care Provider Unavailabl e Allergies Active Allergy Reactions Criticality Noted Date Comments Morphine Medium Nausea and vomiting Medications folic acid (FOLVITE) 1 MG tablet 12/02/2017 Active methotrexate 2.5 MG tablet 12/02/2017 Active tiZANidine (ZANAFLEX) 4 MG tablet 09/18/2017 Active HUMIRA PEN 40 MG/0.4ML Pen-injector Kit 02/26/2018 Ac tive fluticasone (FLONASE) 50 MCG/ACT nasal spray 03/11/2018 Active levocetirizine (XYZAL) 5 MG tablet 02/20/2018 Active acetaminophen (TYLENOL) 325 MG tablet Take by mouth every 6 (six) hours if needed for mild pain. Active hyoscyamine (LEVSIN) 0.125 MG SL tablet 1 08/06/2018 Active Cholecalciferol (VITAMIN D3) 5000 units capsule 08/19/2018 Active cyanocobalamin (VITAMIN B-12) 1000 MCG tablet 08/19/2018 Act sadi citalopram (CeleXA) 40 MG tablet 11/12/2018 Active nabumetone (RELAFEN) 750 MG tablet 07/30/2019 Active PREMARIN 0.9 MG tablet 07/30/2019 Active cyclobenzaprine (FLEXERIL) 10 MG tablet 07/30/2019 Active Active Problems Problem Noted Date Diagnosed Date Rheumatoid arthritis involving both shoulders Carpal tunnel syndrome of right wrist Lateral epicondylitis of left elbow Family History Medical History Relation Name Comments Diabetes Brother Hypertension Brother Cancer Father Hypertension Mother Hypertension Sister Relation Name Status Comments Brother Father Mother Sister Social History Tobacco Use Types Packs/Day Years Used Date Smoking Tobacco: Every Day Cigarettes 1 38.1 Started: 1986 Smokeless Tobacco: Never Intimate Partner Violence Answer Date R ecorded Insults You Not on file 08/24/2020 Threatens You Not on file 08/24/2020 Screams at You Not on file 08/24/2020 Physically Hurt Not on file 08/24/2020 Intimate Partner Violence Score Not on file 08/24/2020 Depression Answer Date Recorded PHQ-9 Total Score 0 01/15/2020 Stress Answer Date Recorded Stress in your Life Not on file 03/16/2024 Dealing with Stress 3 03/16/2024 Comments No Sex and Gender Information Value Date Recorded Sex Assigned at Not on file Legal Sex Female 9:24 AM CDT Gender Identity Not on file Sexual Orientation Not on file Last Filed Vital Signs Vital Sign Reading Time Taken Comments Blood Pressure 103/70 01/15/2020 4:12 PM EDT Pulse 73 01/15/2020 4:12 PM EDT Temperature 36.3 C (97.3 F) 01/15/2020 4:12 PM EDT Respiratory Rate 14 01/15/2020 4:12 PM EDT Oxygen Saturation 97% 01/15/2020 4:12 PM EDT Inhaled Oxygen Concentration - - Weight 91.9 kg (202 lb 11.2 oz) 10/21/2018 1:35 PM EDT Height 162.6 cm (5' 4 ) 10/21/2018 1:35 PM EDT Body Mass Index 34.79 10/21/2018 1:35 PM EDT Plan of Treatment Health Maintenance Due Date Last Done Comments CT Colonography 1972 Cervical Cancer Screening Combo 1972 Colonoscopy 1972 Colorectal Cancer Screening Combo 1972 DNA Cologuard 1972 Dental Cleaning/Exam 1972 FIT or FOBT Test 1972 HIV Screening 1972 HPV / Cotest 1972 Hepatitis C Screening 1972 Pap Testing 1972 Sigmoidoscopy 1972 Annual Preventive Exam 1990 Hep B Infection Screening - Triple Screen 1990 Hepatitis B Immunization (1 of 3 - 19+ 3-dose series) 12/21/1991 Pneumococcal: Ped (0 to 5 Yr s) and At-Risk Member (6 to 64 Yrs) (1 of 2 - PCV) 12/21/1991 Tetanus Diphtheria and Pertu ssis Immunization (1 - Tdap) 12/21/1991 Breast Cancer Screening 2002 Zoster Immunization (1 of 2) 2022 Covid-19 Immunization (1 - 2 024-25 season) 2025 Influenza Immunization (#1) 2025 HIB Immunization Aged Out No longer e ligible based on patient's age to complete this topic HPV Immunization Aged Out No longer e ligible based on patient's age to complete this topic Hepatitis A Immunization Aged Out No longer eligible based on patient's age to complete this topic Polio Immunization Aged Out No longer eligible based on patient's age to complete this topic Insurance [employer] [place] 5 [place] 5 [place] 5 BRAULIO HUMPHREY [id number] [place] [address] Care Teams Dewer Relationship Specialty Start Date [place] [address] PCP - General News Videographer 10/02/19
--- OUTSIDE RECORDS SUMMARY | 2025-01-27 21:28 | XMS_ITS | Clinical Summary ---
Author Organization [facility] Address [address] [facility] [address] [place] [address] Phone Care Team Providers Care Athletic Monitor Name Role Phone Nayla Bowman APRN Primary Care Provider [phone] Scooby Hicks MD Unavailable Allergies Active Allergy Reactions Criticality Noted Date Comments Morphine Nausea And Vomiting 12/22/2013 Morphine Nausea Only 06/26/2018 Nitrous Oxide Nausea And Vomiting 12/22/2013 Medications methocarbamoL (ROBAXIN) 750 mg Oral Tablet TAKE ONE (1) TABLET THREE (3) TIMES A DAY BY ORAL ROUTE NEEDED. Active omeprazole (PRILOSEC) 40 mg Oral Capsule, Delayed Release(E.C.) TAKE ONE (1) CAPSULE BY MOUTH EVERY DAY Active oxybutynin (DITROPAN XL) 15 mg Oral Tablet Extended Rel 24 hr TAKE ONE (1) TABLET EVERY DAY BY ORAL ROUTE. 05/25/2022 Active naproxen (NAPROSYN) 500 mg Oral Tablet 05/25/2022 Acti ve loratadine (CLARITIN) 10 mg Oral Tablet TAKE ONE (1) TABLET EVERY DAY BY ORAL ROUTE. 04/13/2021 Active atorvastatin (LIPITOR) 10 mg Oral Tablet TAKE ONE (1) TABLET EVERY DAY BY ORAL ROUTE. 07/03/2021 Active PREMARIN 0.625 mg Oral Tablet TAKE ONE (1) TABLET EVERY DAY BY ORAL ROUTE. 04/10/2022 Active acetaminophen 325 mg Oral Tab Take by mouth every 6 hours as needed. Active adalimumab (HUMIRA) 40 mg/0.4 mL SubQ Pen Injector Kit 02/26/2018 Active Cholecalciferol , Vitamin D3, 5,000 unit Oral Capsule 08/19/2018 Active citalopram (CELEXA) 40 mg Oral Tablet 11/12/2018 Active cyanocobalamin 1,000 mcg Oral Tablet 08/19/2018 Active VITAMIN B-12 1,000 mcg Oral Tablet 08/19/2018 Active fluticasone propionate (FLONASE) 50 mcg/actuation Nasl [place], Suspension 03/11/2018 Active folic acid (FOLVITE) 1 mg Oral Tablet 12/02/2017 Active hyoscyamine (LEVSIN/SL) 0.125 mg SL Tablet, Sublingual 1 08/06/2018 Active levocetirizine (XYZAL) 5 mg Oral Tablet 11/25/2018 Active Methotrexate Sodium 2.5 mg Oral Tablets, Dose Pack 12/02/2017 Active tiZANidine (ZANAFLEX) 4 mg Oral Tablet 09/18/2017 Active traMADol (ULTRAM) 50 mg Oral Tablet 02/17/2018 Active Active Problems Problem Noted Date Diagnosed Date ERRONEOUS ENCOUNTER--DISREGARD 01/20/2014 Thrombocytopenia 12/22/2013 Encounters Date Type Department Care Team Description 01/13/2025 2:17 PM EDT - 01/13/2025 11:59 PM EDT Hospital Encounter Mobile Mammography Other Location View online schedule for mobile van location [phone] Atul Coto PA Encounter for screening mammogram for malignant neoplasm of breast Discharge Disposition: Home or Self Care from Last 3 Months Surgical History Surgery Date Site/Laterality Comments HYSTERECTOMY 2002 CHOLECYSTECTOMY 1994 TONSILLECTOMY 1978 Family History Medical History Relation Name Comments Hypertension Brother Cancer Father Lung Cancer Father Diabetes Maternal Grandmother Hypertension Maternal Grandmother Elevated Lipids Mother Emphysema Mother High Blood Pressure Mother Hypertension Mother Hypertension Sister Relation Name Status Comments Brother Father Maternal Grandmother Mother Sister Social History Tobacco Use Types Packs/Day Years Used Date Smoking Tobacco: Every Day Cigarettes 1 38.7 Started: 05/26/1986 Smokeless Tobacco: Never Tobacco Cessation:Ready to Q uit: Not Asked; Counseling Given: Not Answered Alcohol Use Standard Drinks/Week Comments No 0 (1 standard drink = 0.6 oz pur e alcohol) Comments No Sex and Gender Information Value Date Recorded Sex Assigned at Not on file Legal Sex Female 9:19 PM EDT Gender Identity Not on file Sexual Orientation Not on file Obstetrics History Para Term AB IAB SAB Ectopic Multiple Livin g Live Births 2 Last Filed Vital Signs Vital Sign Reading Time Taken Comments Blood Pressure 150/80 12/10/2018 2:59 PM EDT Pulse 81 12/10/2018 2:59 PM EDT Temperature 36.8 C (98.2 F) 12/22/2013 2:39 PM EDT Respiratory Rate 16 12/22/2013 2:39 PM EDT Oxygen Saturation 96% 12/10/2018 2:59 PM EDT ra at rest Inhaled Oxygen Concentration - - Weight 81.6 kg (180 lb) 01/13/2025 2:18 PM EDT Height 160 cm (5' 3 ) 01/13/2025 2:18 PM EDT Body Mass Index 31.89 01/13/2025 2:18 PM EDT Plan of Treatment Health Maintenance Due Date Last Done Comments Annual Wellness Exam 12/21/1975 COVID-19 Vaccine (#1) 1977 Hepatitis B Vaccine (1 of 3 - 19+ 3-dose series) 12/21/1991 Pneumococcal Vaccine 50+ (1 of 2 - PCV) 12/21/1991 Zoster (1 of 2) 12/21/1991 Cervical Cancer Screening 1993 Pap Smear 1993 HPV/Pap Cotest 2002 Cologuard 2017 FIT 2017 Sigmoidoscopy 2017 Virtual Colonography 2017 Low Dose Lung Cancer Screening 2022 11/28/2018 Influenza Vaccine (#1) 2025 3, 05/25/2022, 01/23/2019, Additional history exists Breast Cancer Screening 01/13/2027 01/14/20 25, 10/07/2020, 09/30/2020 Colon Cancer Screening 01/05/2030 Colonoscopy 01/05/2030 01/06/2020 DTaP/TDaP/Td (2 - Td or Tdap) 05/25/2032 05/25/2022 Meningococcal B Vaccine Aged Out No l onger eligible based on patient's age to complete this topic Procedures Procedure Name Priority Date/Time Associated Diagnosis Comments MM OUTSIDE FILMS FOR COMPARISON Routine 01/14/2025 7:48 AM EDT MM MAMMO DIGITAL ALVARADO SCREEN BILAT Routine 01/13/2025 2:18 PM EDT Encounter for screening mammogram for malignant neoplasm of breast CT CHEST WO CONTRAST Routine 11/28/2018 5:19 PM EDT Atelectasis from Last 3 Months or Most Recently Relevant to Health Maintenance Results * MM OUTSIDE FILMS FOR COMPARISON (01/14/2025 7:48 AM EDT) us Unknown Provider IMG MAMMOGRAPHY ORDERABLES Vale l Result PACS * MM MAMMO DIGITAL ALVARADO SCREEN BILAT (01/13/2025 2:18 PM EDT) Anatomical Region Laterality Modality Breast Bilateral Mammography 01/13/2025 2:18 PM EDT Impressions 01/14/2025 8:59 AM EDT Negative ([id number]) RECOMMENDATION: Routine Screening Mammogram in 1 Year Bilateral . . COMMENTS: DISCLAIMER *The patient was notified by MyChart or mail of the results for this examination. *The patient's information was entered into a reminder system with a target due date for the next breast imaging, in accordance with the [employer] and the Society of [...] for screening mammogram for malignant neoplasm of [id number] COMPARISON STUDIES: Multiple prior mammograms with most recent dated 10/07/2020 MM MAMMO DIGITAL SCREENING W CAD BILAT at [facility] TISSUE DENSITY: There are scattered areas of fibroglandular density. FINDINGS: No mammographic evidence of malignancy. Procedure Note Keyur Brizuela MD - 01/14/2025 EXAM: MM MAMMO DIGITAL ALVARADO SCREEN BILAT EXAM DATE: 01/13/2025 2:18 PM INDICATION: Z12.31-Encounter for screening mammogram for malignantneoplasm of [id number]-CM COMPARISON STUDIES: Multiple prior mammograms with most recent dated 10/07/2020 MM MAMMO DIGITAL SCREENING W CAD BILAT at [facility] TISSUE DENSITY: There are scattered areas of fibroglandular density. FINDINGS: No mammographic evidence of malignancy. IMPRESSION: Negative ([id number]-1) RECOMMENDATION: Routine Screening Mammogram in 1 Year Bilateral . . COMMENTS: DISCLAIMER *The patient was notified by MyChart or mail of the results for this examination. *The patient's information was entered into a reminder system with atarget due date for the next breast imaging, in accordance with the [employer] and the Society of Breast Imaging recommendations. *Breast Imaging has a false negative rate of 15%. *Any patient with a palpable abnormality, unexplained by breast imaging,should be managed on a clinical basis by the attending physician. Atul TAYLOR MAMMOGRAPHY ORDERABLES Final Result * CT CHEST WO CONTRAST (11/28/2018 5:19 PM EDT) Anatomical Region Laterality Modality Chest Computed Tomogra phy 11/28/2018 5:19 PM EDT Impressions 11/28/2018 5:32 PM EDT No suspicious pulmonary nodules. No lymphadenopathy. Healed right third rib fracture. Narrative 11/28/2018 5:[address] CHEST WITHOUT CONTRAST, 11/28/2018 5:19 PM CLINICAL HISTORY: J98.07-[id number]-CM COMPARISON: Prior chest x-ray and CT scan at [facility] not available. PROCEDURE COMMENTS: Multi-detector CT of the chest with multiplanar reconstructions per protocol. No contrast given. Automated exposure control for dose reduction was used. CTDIvol: 8.4 mGy. DLP: 247 mGy-cm. FINDINGS: There is a densely calcified, 4 mm granuloma in the posterior segment of the right lung upper lobe. 4 mm densely calcified granuloma present in the left lung apex. No suspicious pulmonary nodules. Airways are patent. Small calcified right paratracheal and bilateral hilar nodes present. No enlarged mediastinal or hilar nodes. There is no pleural fluid. No pericardial fluid. There is a healed fracture with prominent callus formation of the lateral right third rib. No other osseous abnormalities. Procedure Note Diana Koch MD - 11/28/2018 CT CHEST WITHOUT CONTRAST, 11/28/2018 5:19 PM CLINICAL HISTORY: J98.24-[id number]-CM COMPARISON: Prior chest x-ray and CT scan at [facility] notavailable. PROCEDURE COMMENTS: Multi-detector CT of the chest with multiplanar reconstructions per protocol. No contrast given. Automated exposurecontrol for dose reduction was used. CTDIvol: 8.4 mGy. DLP: 247 mGy-cm. FINDINGS: There is a densely calcified, 4 mm granuloma in the posterior segment ofthe right lung upper lobe. 4 mm densely calcified granuloma present in theleft lung apex. No suspicious pulmonary nodules. Airways are patent. Small calcified right paratracheal and bilateral hilar nodes present. No enlarged mediastinal or hilar nodes. There is no pleural fluid. No pericardial fluid. There is a healed fracture with prominent callus formation of the lateralright third rib. No other osseous abnormalities. IMPRESSION: No suspicious pulmonary nodules. No lymphadenopathy. Healed right third rib fracture. Zhou Reddy MD IMG CT ORDERABLES Final Result from Last 3 Months or Most Recently Relevant to Health Maintenance Insurance MEDICAID Care Teams Athletic Monitor Relationship Specialty Start Date End Date Nayla Bowman APRN [address] [facility] [address] [place] [address] PCP - General Nurse Practitioner 06/26/18 Scooby Hicks MD [address] [facility] [address] [place] [address] 06/26/18
--- OUTSIDE RECORDS SUMMARY | 2025-01-27 21:29 | XMS_ITS | Clinical Summary ---
Author Organization [facility] Address [address] [place] [address] Care Team Providers Care Unmanned Equipment Operator Name Role Phone Marissa Umana APRN Unavailable [phone] Atul Coto Primary Care Provider [phone] Allergies Active Allergy Reactions Criticality Noted Date Comments Morphine Other - please docum ent in the comment field Low 08/31/2021 Nausea Nitrous Oxide Nausea And Vomiting 12/22/2013 Medications estrogens, conjugated, (Premarin) vaginal cream Premarin 0.625 mg/gram vaginal cream INSERT 0.5G INTRAVAGINALLY NIGHTLY BEFORE BED FOR THE FIRST MONTH AND THEN GO TO TWICE WEEKLY. Active Premarin vaginal cream INSERT 0.5G INTRAVAGINALLY NIGHTLY BEFORE BED FOR THE FIRST MONTH AND THEN GO TO TWICE WEEKLY. 2 Active loratadine (Claritin) 10 MG tablet TAKE ONE (1) TABLET EVERY DAY BY ORAL ROUTE. 1 Active atorvastatin (Lipitor) 10 MG tablet TAKE ONE (1) TABLET EVERY DAY BY ORAL ROUTE. 2 Active oxybutynin XL (Ditropan-XL) 10 MG 24 hr tablet TAKE ONE (1) TABLET EVERY DAY BY ORAL ROUTE. 2 Active citalopram (CeleXA) 40 MG tablet TAKE ONE (1) TABLET EVERY DAY BY ORAL ROUTE. 1 Active acetaminophen (Tylenol) 500 MG tablet acetaminophen 500 mg tablet TAKE ONE (1) TABLET EVERY SIX (6) HOURS BY ORAL ROUTE NEEDED. Active atorvastatin (Lipitor) 10 MG tablet atorvastatin 10 mg tablet TAKE ONE (1) TABLET EVERY DAY BY ORAL ROUTE. Active clindamycin (Cleocin T) 1 % external solution clindamycin phosphate 1 % topical solution Active cyclobenzaprin e (Flexeril) 5 MG tablet TAKE ONE (1) TABLET TWICE A DAY BY ORAL ROUTE. 1 Active Premarin 0.625 MG tablet 2 Active oxybutynin XL (Ditropan-XL) 10 MG 24 hr tablet 1 (one) time each day. Active pantoprazole (Protonix) 40 MG EC tablet pantoprazole 40 mg tablet,delayed release Active traMADol (Ultram) 50 MG tablet Take 50 mg by mouth 2 (two) times a day if needed. 2 Active triamcinolone (Kenalog) 0.1 % cream 2 Active methylPREDNISo lone (Medrol Dospak) 4 MG tablets 3 Active naproxen (Naprosyn) 500 MG tablet 3 Active oxybutynin XL (Ditropan-XL) 15 MG 24 hr tablet 3 Active Social History Tobacco Use Types Packs/Day Years Used Date Smoking Tobacco: Every Day Cigarettes 1 35 Smokeless Tobacco: Never Tobacco Cessation:Ready to Q uit: Not Asked; Counseling Given: Not Answered Alcohol Use Standard Drinks/Week Comments Never 0 (1 standard drink = 0.6 oz pur e alcohol) PHQ-2 Answer Date Recorded Patient Health Questionnaire-2 Score 0 08/31/2021 Comments Unknown Sex and Gender Information Value Date Recorded Sex Assigned at Not on file Legal Sex Female 7:36 PM EDT Gender Identity Not on file Sexual Orientation Not on file Last Filed Vital Signs Vital Sign Reading Time Taken Comments Blood Pressure 107/68 05/31/2022 1:29 PM EST Pulse 72 05/31/2022 1:29 PM EST Temperature 36.8 C (98.2 F) 10/10/2021 1:56 PM EDT Respiratory Rate 18 05/31/2022 1:29 PM EST Oxygen Saturation 95% 05/31/2022 1:29 PM EST Inhaled Oxygen Concentration - - Weight 88.5 kg (195 lb 1.7 oz) 05/31/2022 1:29 P M EST Height 160 cm (5' 3 ) 05/31/2022 1:29 PM EST Body Mass Index 34.56 05/31/2022 1:29 PM EST Plan of Treatment Health Maintenance Due Date Last Done Comments [facility]-HIV Screening 1972 [facility]-Hepatitis C Screening 1972 [facility]-Infant/Child/Adol SDOH Screenings 1972 [facility]- SDOH Screenings 1990 [facility]-Adult SDOH Screenings 1990 [facility]-Hepatitis B Vaccines (1 of 3 - 19+ 3-dose series) 12/21/1991 CT Colonography 2017 Colonoscopy 2017 FIT-DNA 2017 FIT 2017 FOBT 2017 Sigmoidoscopy 2017 [facility]-Colorectal Cancer Screening 2017 [facility]-Depression Screening 08/31/2022 08/31/2021 [facility]-Breast Cancer Screening 12/20/202210/12, 10/07/2020, 10/07/2020 [facility]-Pneumococcal Vaccine: 50 + Years (1 of 1 - PCV) 2022 [facility]-Zoster Vaccines (1 of 2) 2022 [id number] Vaccine (1 - 2023- season) 2025 [facility]-Influenza Vaccine (#1) 01/11/202505/25, 01/23/2019, 02/06/2017 [facility]-DTaP,Tdap,and Td Vaccine s (2 - Td or Tdap) 05/25/2032 05/25/2022 [facility]-Lung Cancer Screening Discontinued 11/28/2018 [facility]-Obesity Intervention Completed 023, 04/11/2022 HPV Vaccines Aged Out No longer eligi ble based on patient's age to complete this topic [facility]-HIB Vaccines Aged Out No longer e ligible based on patient's age to complete this topic [facility]-Hepatitis A Vaccines Aged Out No longer eligible based on patient's age to complete this topic [facility]-IPV Vaccines Aged Out No longer e ligible based on patient's age to complete this topic [facility]-Rotavirus Vaccines Aged Out No lo nger eligible based on patient's age to complete this topic Goals Goal Patient Goal Type Associated Problems Recent Progress Patient-Stated? Author STG OT Patient will verbalize/de monstrate donning and doffing of splint x 1 week. Occupational Therapy No Kimberlee Vail Care Teams Unmanned Equipment Operator Relationship Specialty Start Date End Date Atul Coto PA [address] [place] [address] PCP - General 05/31/22 Marissa Umana, IT INFRASTRUCTURE MANAGER [address] [place] [address] Nurse Practitioner Neurosurgery 04/11/22
--- OUTSIDE RECORDS SUMMARY | 2025-01-27 21:29 | XMS_ITS | Clinical Summary ---
Author Organization [facility] Address [address] [place] [address] Care Team Providers Care Flume Maker Name Role Phone Provider, No Known Primary Care Provider Unavail able Allergies Active Allergy Reactions Criticality Noted Date Comments Morphine GI Intolerance Medium 09/25/2022 Medications omeprazole (priLOSEC) 40 MG capsule Take 1 capsule by mouth Daily. Active Social History Tobacco Use Types Packs/Day Years Used Date Smoking Tobacco: Never Assessed Abuse Screen Answer Date Recorded Unsafe at Home or Work/School Not on file Feels Threatened by Someone? Not on file Does Anyone Keep You from Co ntacting Others or Doint Things Outside the Home? Not on file 02/22/2023 Physical Sign of Abuse Present Not on file 1 Housing Stability Answer Date Recorded Current Living Arrangements Not on file 02/10 Potentially Unsafe Housing Conditions Not on robbin e 02/22/2023 Family and Community Support Answer Leonard e Recorded Help with Day-to-Day Activities Not on file 02/22/2023 Lonely or Isolated Not on file 02/22/2023 Employment Answer Date Recorded Do you want help finding or keeping work or a lucía b? Not on file 02/22/2023 Disabilities Answer Date Recorded Concentrating, Remembering, or Making Decisions Difficulty Not on file 02/22/2023 Doing Errands Independently Difficulty Not on fi le 02/22/2023 Education Answer Date Recorded Help with school or training? Not on file Preferred Language Not on file 02/22/2023 Comments Unknown Sex and Gender Information Value Date Recorded Sex Assigned at Not on file Legal Sex Female 10:58 AM EST Gender Identity Not on file Sexual Orientation Not on file Last Filed Vital Signs Vital Sign Reading Time Taken Comments Blood Pressure - - Pulse - - Temperature - - Respiratory Rate - - Oxygen Saturation - - Inhaled Oxygen Concentration - - Weight 83.5 kg (184 lb) 09/25/2022 2:12 PM EDT Height 160 cm (5' 3 ) 09/25/2022 2:12 PM EDT Body Mass Index 32.59 09/25/2022 2:12 PM EDT Plan of Treatment Health Maintenance Due Date Last Done Comments ANNUAL PHYSICAL 1970 Annual Gynecologic Pelvic an d Breast Exam 1972 HEPATITIS C SCREENING 1972 COLOGUARD 2017 COLON CANCER SCREENING 5 YEA R SIGMOIDOSCOPY [address] CT COLONOGRAPHY 2017 FECAL OCCULT BLOOD TEST 2017 FIT Testing (1 year) 2017 MAMMOGRAM 11/07/2022 11/07/2020, 09/11, 10/07/2020 Pneumococcal Vaccine 50+ (1 of 1 - PCV) 2022 ZOSTER VACCINE (1 of 2) 2022 COVID-19 Vaccine (1 - season) 2025 INFLUENZA VACCINE 02/10/2025 05/25/2022, , 02/06/2017 TDAP/TD VACCINES (2 - Td or Tdap) 05/25/2032 023 COLONOSCOPY 07/10/2032 07/10/2022 COLORECTAL CANCER SCREENING 07/10/2032 Procedures Procedure Name Priority Date/Time Associated Diagnosis Comments SCANNED - COLONOSCOPY 07/10/2022 from Last 3 Months or Most Recently Relevant to Health Maintenance Results * SCANNED - COLONOSCOPY (07/10/2022) [facility] CHART REVIEW TABS Final Re sult from Last 3 Months or Most Recently Relevant to Health Maintenance Care Teams Flume Maker Relationship Specialty Start Date End Date Provider, No Known [facility] [address] PCP - General 09/25/22
--- OUTSIDE RECORDS SUMMARY | 2025-01-27 21:29 | XMS_ITS | Clinical Summary ---
Author Organization [facility] Address [address] [place] [address] Care Team Providers Care Communications Editor Name Role Phone Unavailable Primary Care Provider Unavailabl e Social History Tobacco Use Types Packs/Day Years Used Date Smoking Tobacco: Never Assessed Comments Unknown Sex and Gender Information Value Date Recorded Sex Assigned at Not on file Legal Sex Female 11:58 AM EDT Gender Identity Not on file Sexual Orientation Not on file Plan of Treatment Health Maintenance Due Date Last Done Comments COLOGUARD 1972 COLONOSCOPY 1972 Colorectal Screening Combination 1972 FIT 1972 HEP C SCREENING 1972 PAP SMEAR EVERY 3 YR (Cervic al Cancer Screen) 1972 SIGMOIDOSCOPY 1972 ANNUAL WELLNESS EXAM 12/21/1975 DTAP/TDAP/TD VACCINE (1 - Tdap) 12/21/1991 Shingles Vaccine (Shingrix) (1 of 2) 2022 INFLUENZA VACCINE (#1) 2025 HEP A VACCINE Aged Out No longer elig ible based on patient's age to complete this topic HIB VACCINE Aged Out No longer eligi ble based on patient's age to complete this topic ROTOVIRUS VACCINE Aged Out No longer eligible based on patient's age to complete this topic
--- OUTSIDE RECORDS SUMMARY | 2025-01-27 21:29 | XMS_ITS | Encounter Summary ---
Author Organization [facility] Address [address] [place] [address] Phone [email or web address] Care Team Providers Care Order Clerk Name Role Phone Nayla Bowman Primary Care Provider Unavailabl e Encounter Details Date Type Department Care Team (Late st Contact Info) Description 03/21/2018 Ancillary Orders [facility] [place] [address] [facility] [address] [place] [address] Aleida Bowles MD [address] [place] [address] Encounter for fitness for duty examination; History of fracture of phalanx of finger Social History Tobacco Use Types Packs/Day Years Used Date Smoking Tobacco: Every Day Cigarettes 1 38.1 Started: 1986 Smokeless Tobacco: Never Comments Unknown Sex and Gender Information Value Date Recorded Sex Assigned at Not on file Legal Sex Female 9:24 AM CDT Gender Identity Not on file Sexual Orientation Not on file documented as of this encounter Plan of Treatment Not on file documented as of this encounter Visit Diagnoses Diagnosis Encounter for fitness for duty examination History of fracture of phalanx of finger documented in this encounter Care Teams Order Clerk Relationship Specialty Start [place] [address] - [address] Cleaner 10/02/19 documented as of this encounter
--- OUTSIDE RECORDS SUMMARY | 2025-01-27 21:29 | XMS_ITS | Encounter Summary ---
Author Organization [facility] Address [address] [place] [address] Care Team Providers Care Luggage Liner Name Role Phone Tono Segundo MD Primary Care Provider [phone] Lninea Keys MD Primary Care Provider [phone] Marissa Umana DANCE HISTORIAN Unavailable [phone] Atul Coto Primary Care Provider [phone] Reason for Referral * Consultation (Routine) - Closed Specialty Diagnoses / Procedures Referred By Contclement t Referred To Contact Hand Surgery Diagnoses Pain in left wrist Linnea Keys MD [address] [place] [address] Phone: tel: fax: Referral ID Status Reason Start Date Expiration Date V isits Requested Visits Authorized [id number] Closed Specialty Services Required 08/22/2021 02/21/2023 1 1 Encounter Details Date Type Department Care Team (Late st Contact Info) Description 08/22/2021 Community [facility] [address] [place] [address] Linnea Keys MD [address] [place] [address] Pain in left wrist (Primary Dx) Social History Tobacco Use Types Packs/Day Years Used Date Smoking Tobacco: Never Assessed Comments Unknown Sex and Gender Information Value Date Recorded Sex Assigned at Not on file Legal Sex Female 7:36 PM EDT Gender Identity Not on file Sexual Orientation Not on file documented as of this encounter Plan of Treatment Scheduled Referrals Name Type Priority Associated Diagnoses Order Schedule Ambulatory referral to Hand Surgery Outpatient Referral Routine Pain in left wrist 1 Occurrences starting 08/22/2021 until 02/21/2023 documented as of this encounter Visit Diagnoses Diagnosis Pain in left wrist- Primary Pain in joint, forearm documented in this encounter Care Teams Luggage Liner Relationship Specialty Start Date End Date Tono Segundo MD [address] [place] [address] PCP - General 09/23/20 08/28/21 Linnea Keys MD [address] [place] [address] [place] [address] PCP - General 08/29/21 05/30/22 Atul Coto PA [address] [place] [address] PCP - General 05/31/22 Marissa Umana, DANCE HISTORIAN [address] [place] [address] Nurse Practitioner Neurosurgery 04/11/22 documented as of this encounter
--- NOTE | 2025-01-27 21:49 | [facility].EDGENADL ---
Discharge Plan Disposition Patient Disposition: Home, Self-Care Condition: Good Prescriptions Prescriptions: New doxycycline hyclate 100 mg capsule 100 mg PO BID 10 Days Qty: 20 0RF No Action tizanidine 4 mg tablet PO Qty: 60 adalimumab 40 mg/0.4 mL pen injector kit SQ Qty: 6 folic acid 1 mg tablet PO Qty: 90 tramadol 50 mg tablet PO Qty: 60 cholecalciferol (vitamin D3) 5,000 unit capsule PO Qty: 90 cyanocobalamin (vitamin B-12) 1,000 mcg tablet PO Qty: 90 fluticasone propionate 50 mcg/actuation spray,suspension INTRANASAL Qty: 32 citalopram 40 mg tablet PO Qty: 90 methotrexate sodium 2.5 mg tablet PO Qty: 78 levocetirizine 5 mg tablet PO Qty: 90 conjugated estrogens 0.9 mg tablet 0.9 mg PO DAILY Qty: 90 2RF ciprofloxacin HCl [Cipro] 500 mg tablet 500 mg PO BID Qty: 20 0RF metronidazole 500 mg tablet 500 mg PO TID Qty: 30 0RF ondansetron 4 mg tablet,disintegrating 4 mg PO Q8H PRN (Reason: nausea and vomiting) Qty: 10 0RF valacyclovir [Valtrex] 1 gram tablet 1,000 mg PO Q8H 7 Days Qty: 21 0RF ondansetron 4 mg tablet,disintegrating 4 mg PO Q6H PRN (Reason: nausea and vomiting) Qty: 10 0RF gabapentin 300 mg capsule See Rx Instructions .ROUTE .COMPLEX Qty: 27 0RF Rx Instructions: 300 mg orally day 1, 300mg orally twice day 2, 300mg three times a day thereafter for neuropathic pain from shingles Referrals Follow up/Referrals: Atul Coto PA [Primary Care Provider, Medical] - See instructions Activity Restrictions/Add. Instructions Additional Instructions/Restrictions: Take the antibiotics as prescribed for 10 days. Return to the ER if the redness progresses beyond on the blue markings or if you have any other acute concerns. Clinical Impressions Clinical Impression: Cellulitis Instructions Patient Instructions: DI for Skin Abscess Print Language Print Language: Portuguese Discharge ED Provider: Ana Garrison Adult HPI General Chief complaint: Skin/Abscess/Foreign Body Stated complaint: right leg insect bite swollen ,fever Time Seen by Provider: 01/27/25 21:49 Mode of Arrival: Ambulatory Description of Symptoms (Recalled from ER Triage Doc. by RN): Pt presents for evaluation of a tick bite to her right thigh. Pt states she removed the tick 2 days ago History of Present Illness HPI narrative: Patient is a 54-year-old female with no significant past medical history who presented to the emergency department with redness to her right thigh. Patient states that she pulled a tick out of her bag 2 days ago. Unclear how long it has been there for. Patient reports redness and swelling since that time. Patient reports fevers at home. Patient denies any other upper respiratory symptoms. Patient denies any significant pain. Patient denies any drainage. Patient denies any abdominal pain nausea vomiting or diarrhea. Patient denies any chest pain or shortness of breath. Patient denies any headache or vision changes. Related Data Home Medications ?Medication ?Instructions ?Recorded ?Confirmed adalimumab 40 mg/0.4 mL SQ #6 ea 02/23/19 02/23/19 subcutaneous pen kit cholecalciferol (vitamin D3) 125 PO #90 caps 02/23/19 02/23/19 mcg (5,000 unit) capsule citalopram 40 mg tablet PO #90 tabs 02/23/19 02/23/19 cyanocobalamin (vitamin B-12) PO #90 tabs 02/23/19 02/23/19 1,000 mcg tablet fluticasone propionate 50 intranasal #32 grams 02/23/19 02/23/19 mcg/actuation nasal spray,suspension folic acid 1 mg tablet PO #90 tabs 02/23/19 02/23/19 levocetirizine 5 mg tablet PO #90 tabs 02/23/19 02/23/19 methotrexate sodium 2.5 mg tablet PO #78 tabs 02/23/19 02/23/19 tizanidine 4 mg tablet PO #60 tabs 02/23/19 02/23/19 tramadol 50 mg tablet PO #60 tabs 02/23/19 02/23/19 Previous Rx's ?Medication ?Instructions ?Recorded conjugated estrogens 0.9 mg tablet 0.9 mg PO DAILY #90 tabs 06/01/20 ciprofloxacin HCl 500 mg tablet 500 mg PO BID #20 tabs 07/27/22 (Cipro) metronidazole 500 mg tablet 500 mg PO TID #30 tabs 03/17/23 ondansetron 4 mg disintegrating 4 mg PO Q8H PRN nausea and 07/27/22 tablet vomiting #10 tabs ondansetron 4 mg disintegrating 4 mg PO Q6H PRN nausea and 01/14/24 tablet vomiting #10 tabs valacyclovir 1 gram tablet 1,000 mg PO Q8H 7 days #21 tabs 01/14/24 (Valtrex) gabapentin 300 mg capsule See Rx Instructions .Route 01/15/24 .COMPLEX #27 caps doxycycline hyclate 100 mg capsule 100 mg PO BID 10 days #20 caps 01/27/25 Allergies Allergy/AdvReac Type Severity Reaction Status Date / Time morphine AdvReac Vomiting Verified 02/23/19 13:47 [facility] Disclaimer: The information contained in this section may have been updated after the patient was seen, as this information can be updated by other users. Social History Smoking Status: Current every day smoker tobacco type: cigarettes alcohol intake: never current occupational status: employed Travel in the last 8 weeks?: None Have you lived/traveled outside [place] in past 30 days?: No Contact w/someone who lives/traveled outside [place] past 30 days?: No Exposure to someone with infectious disease in past 14 days?: No Do you have a fever (greater than 100.4 F or 38 C)?: No Have you tested positive for COVID-19?: No Exposed to someone with COVID-19 in past 14 days?: No Do you have a sore throat?: No Do you have a cough?: No Do you have any weakness?: No Do you have any diarrhea?: No Are you experiencing any unusual bleeding?: No Do you have any muscle aches/pain?: No Do you have any abdominal pain?: No Are you experiencing loss of taste or smell?: No Other Medical History Have you received the Pneumonia Vaccine: No ROS Obtained: Yes All systems reviewed & no additional complaints except as documented and Yes Systems reviewed as appropriate & no additional complaints except as documented Physical Exam General General appearance: alert and in no apparent distress Head Head exam: atraumatic, normocephalic and normal inspection Eye Eye exam: Present normal appearance, PERRL and EOMI; Absent scleral icterus ENT ENT exam: Present normal exam and normal external ear exam Neck Neck exam: Present normal inspection and full ROM Chest Chest inspection: Present normal inspection and symmetric chest wall rise Respiratory Respiratory exam: Present normal lung sounds bilaterally; Absent respiratory distress or wheezes Cardiovascular Cardiovascular exam: Present regular rate, normal rhythm and normal heart sounds Abdominal Exam Abdominal exam: Present soft and distention; Absent tenderness, guarding or rebound Extremities Exam Extremities exam: Present normal inspection and full ROM Back Exam Back exam: Present normal inspection and full ROM Neurological Exam Neurological exam: Present alert and oriented X3 Psychiatric Psychiatric exam: Present normal affect and normal mood Skin Skin exam: Present warm, dry and other (Right inner thigh with a 5 x 5 cm area of erythema with a small bite in the middle no obvious fluctuance) Medical Decision Making Medical Records Medical records reviewed: Yes I reviewed the patient's medical records. Screening: Per USPSTF and CDC recommendations, given the prevalence of disease in our region, it is our hospital?s policy to screen for HIV and viral Hepatitis for all patients aged 18 and over and those with ongoing risk factors. [place] Inquiry Pt receiving controlled substance: No Vital Signs: 01/27/25 20:56 01/27/25 23:03 Temperature 98.6 F 98.4 F Temperature Source Temporal Artery Scan Oral Pulse Rate 62 Respiratory Rate 16 16 Blood Pressure 109/68 L Blood Pressure Source Automatic Cuff Blood Pressure Position Sitting 02 Sat by Pulse Oximetry 96 Oxygen Delivery Method Room Air Room Air Lab Data Lab results reviewed: Yes I reviewed the patient's lab results. Orders (Tests/Meds): ORDERS Category Date Time Status POCUS Point of Care (ER Only) Stat Exams 01/27/25 22:35 Completed Medical Decision Narrative: Patient is a 54-year-old female with no significant past medical history who presented to the emergency department with right thigh redness. On arrival, patient was hemodynamically stable with unremarkable vital signs. Differential includes but not limited to: Reaction to bug bite, cellulitis, abscess, contact dermatitis, amongst others. On exam, patient had an area of 5 x 5 cm of erythema on the right inner thigh with a small bite in the middle. Patient has no obvious fluctuance. Bedside ultrasound was performed which showed no evidence of abscess. Patient was sent with doxycycline given possible tick bite as well as cellulitis. Patient's erythema was marked with a pen and patient was discharged home in stable condition return precautions were discussed. Critical Care Critical Care Time Critical Care Time: No
[2025-01-27 23:03] VITALS: BP 109/68; PULSE 62; RESP 16; TEMP 36.9; O2SAT 97
== END 2025-01-27 23:04 | disposition home or self-care (01) ==
PROVIDERS: Emergency Provider Student in an Organized Health Care Education/Training Program; PCP Student in an Organized Health Care Education/Training Program
DX: L03.115 Cellulitis of right lower limb (principal); S70.361A Insect bite (nonvenomous), right thigh, initial encounter; W57.XXXA Bitten or stung by nonvenomous insect and other nonvenomous arthropods, initial encounter
CPT/HCPCS: 99283